=== PATIENT | male | born 1990 | race Hispanic/Latino ===

== ENCOUNTER 2025-01-14 12:21 | Inpatient (IN) | payer OTHER ==
[~2025-01-14] VITALS: Ht 200.7 cm; Wt 152.7 kg
--- NOTE | 2025-01-14 12:43 | ERN ---
ED Note History of Present Illness Stated Complaint: LEFT FOREARM ABSCESS Chief Complaint: Abscess Time Seen by MD: 12:25 Time Seen by Midlevel: 12:25 Dictation: 34-year-old male presents to the ED in custody due to failed outpatient antibiotic treatment for cellulitis of the left forearm. Patient has had open wound with surrounding cellulitis with a past 10 days and was evaluated by the physician Dr. Raymundo Contreras. Started on clindamycin and Bactrim five days ago and when went to re-evaluate him today sent him here to the ER due to failed and patient antibiotic treatment and worsening wound. Patient is a type 2 diabetic Allergies: Coded Allergies: lisinopril (Unverified Allergy, Unknown, 01/14/25) Past Medical History Past Medical History: Asthma, Diabetes-Type II, Hypertension Surgical History: None RN Note Reviewed/Agreed w/PFSH: Yes Review of System Dictation Constitutional: Negative for fever,chills, and weight loss Eyes: Negative for injury, pain,redness, and discharge ENT: Negative for injury,pain or swelling Cardiovascular: Negative for chest pain, palpitations, and edema Respiratory: Negative for shortness of breath, cough, and wheezing, Abdomen/GI: Negative for abdominal pain, nausea, vomiting, diarrhea, and constipation Back: Negative for injury and pain : Negative for injury, bleeding and discharge MS/Extremity: Negative for injury and deformity Skin: Negative for rash, and discoloration Neuro: Negative for headache, weakness, numbness, tingling, and seizure Psych: Negative for suicide ideation, homicidal ideation, and hallucinations Review of Systems: was completed Initial Vital Sign VS Vital Signs Date Time Temp Pulse Resp B/P (MAP) Pulse Ox O2 Delivery O2 Flow Rate FiO2 01/14/25 12:23 98.2 72 16 138/88 98 Room Air 0 01/14/25 12:39 21 Physical Exam Dictation General: awake, alert, NAD Head/Face: Normocephalic, atraumatic Eyes: PERRL, EOMI, vision at baseline ENT: oral cavity clear, TMs clear, no signs of infection Neck: Trachea midline, supple, no nuchal rigidity Cardiovascular: RRR, normal S1/S2, No MRGs, no JVD Respiratory: CTAB, no respiratory distress, No rales or wheezes Abdomen: Soft, non-tender, non-distended, normal bowel sounds, no guarding or rebound. Skin: Warm, dry, normal turgor, no rash. Large draining abscess with surrounding erythema of left forearm MS/Extremity: Pulses equal, no cyanosis, neurovascular intact, FROM Neuro: COAx4, GCS 15, strength 5/5, CN 2-12 intact, normal cerebellar exam, normal gait, Psych: Normal behavior, mood, and affect normal Results (Laboratory/Radiology) Laboratory/Radiology Laboratory Tests Test 01/14/25 12:58 White Blood Count 8.6 K/uL (4.8-10.8) Red Blood Count 5.28 MIL/uL (4.50-6.20) Hemoglobin 13.9 g/dL (14.0-18.0) L Hematocrit 41.5 % (42-54) L Mean Corpuscular Volume 78.6 fL (79-99) L Mean Corpuscular Hemoglobin 26.3 pg (27.0-33.0) L Mean Corpuscular Hemoglobin Concent 33.5 g/dL (32.0-36.0) Red Cell Distribution Width 12.9 % (11.0-15.5) Platelet Count 269 K/uL (130-400) Mean Platelet Volume 10.2 fL (7.5-10.5) Immature Granulocyte % (Auto) 0.4 % (0-1) Neutrophils (%) (Auto) 62.9 % (40.0-77.0) Lymphocytes (%) (Auto) 21.4 % (21.0-51.0) Monocytes (%) (Auto) 9.6 % (3.0-13.0) Eosinophils (%) (Auto) 5.0 % (0.0-8.0) Basophils (%) (Auto) 0.7 % (0.0-5.0) Neutrophils # (Auto) 5.4 K/uL (1.8-7.7) Lymphocytes # (Auto) 1.8 K/uL (1.0-4.8) Monocytes # (Auto) 0.8 K/uL (0.1-1.0) Eosinophils # (Auto) 0.43 K/uL (0.00-0.70) Basophils # (Auto) 0.06 K/uL (0.00-0.20) Absolute Immature Granulocyte (auto 0.03 K/uL (0-1) Nucleated Red Blood Cells 0.0 % (0.0-0.19) Sodium Level 135 mmol/L (136-145) L Potassium Level 4.0 mmol/L (3.5-5.1) Chloride Level 101 mmol/L (101-111) Carbon Dioxide Level 24 mmol/L (21-32) Blood Urea Nitrogen 15 mg/dL (7-18) Creatinine 1.0 mg/dL (0.5-1.3) Glomerular Filtration Rate Calc 101 mL/min (>90) Random Glucose 137 mg/dL (70-105) H Lactic Acid Level 1.4 mmol/L (0.8-2.5) Total Calcium 9.0 mg/dL (8.5-10.1) C-Reactive Protein, Quantitative 22.70 mg/L (0.5-3.0) H Labs Reviewed?: Yes ED Course ED Course Orders Procedure Category Date Status Time Cbc With Differential LAB 01/14/25 Complete 12:35 Basic Metabolic Panel LAB 01/14/25 Complete 12:35 Blood Cult GHAZALA 01/14/25 In Process 12:35 Crp Quantitative LAB 01/14/25 Complete 12:35 Lactic Acid LAB 01/14/25 Complete 12:35 Aerobic Culture GHAZALA 01/14/25 In Process 12:35 Anaerobic Culture GHAZALA 01/14/25 In Process 12:35 Clindamycin Ivpb PHA 01/14/25 Complete 600mg/50ml (Cleocin 12:35 Us Soft Tissue Upper US 01/14/25 Resulted Extremity 12:43 Edm Admit Bridge Order ADM 01/14/25 Transmitted 13:27 Admit Orders ADM 01/14/25 Transmitted 13:26 Cbc With Differential LAB 01/15/25 Verified 05:00 Basic Metabolic Panel LAB 01/15/25 Verified 05:00 Magnesium LAB 01/15/25 Verified 05:00 Hemoglobin A1c LAB 01/15/25 Verified 05:00 *Nursing CPOE 01/14/25 Transmitted Communication: 13:26 Consistent Carb DIET 01/14/25 Transmitted Lunch Acetaminophen 325 Tab PHA 01/14/25 In Process (Tylenol 325mg Tab 13:30 Ondansetron 4mg PHA 01/14/25 In Process Tablet (Zofran 4mg 13:30 Morphine 2mg Syg PHA 01/14/25 In Process (Morphine 2mg Syg) 13:30 Enoxaparin Sodium 30 PHA 01/15/25 In Process Mg/0.3 Ml (Lovenox) 09:00 Initiate OG 01/14/25 Transmitted Hyperglycemia Protoco 13:26 Insulin Lispro 100 PHA 01/14/25 In Process Unit/Ml 3ml (Humalog 16:30 Vancomycin Protocol PHA 01/14/25 In Process (Vancomycin Protocol 14:00 Cefepime Hcl 1 Gm PHA 01/14/25 In Process Vial (Maxipime 1 Gm Vi 14:00 Vancomycin 2gm/500 Ml PHA 01/14/25 In Process Bag (Vancomycin 2g 14:00 Vancomycin 1g/250ml PHA 01/14/25 In Process Kit (Vancomycin 1g/2 23:00 Vancomycin Trough LAB 01/15/25 Verified 14:00 General Surgery CONPHYSVC 01/14/25 Transmitted Consult 14:17 *Nursing CPOE 01/14/25 Transmitted Communication: 14:17 Current Medications Medications (Trade) Dose Ordered Sig/Naveen Route PRN Reason Start Time Stop Time Status Last Admin Dose Admin Clindamycin HCl/ Dextrose 50 ml @ 100 mls/hr Q8H STAT IV 01/14/25 12:35 01/14/25 13:04 DC 01/14/25 13:04 Vital Signs Date Time Temp Pulse Resp B/P (MAP) Pulse Ox O2 Delivery O2 Flow Rate FiO2 01/14/25 12:39 98.2 72 16 138/88 98 Room Air* 0 21 01/14/25 12:23 98.2 72 16 138/88 98 Room Air [address] Herzog who agrees for admission due to failed outpatient antibiotic treatment. Medical Decision Making MDM MDM: Differential diagnosis: Cellulitis, abscess, failed outpatient antibiotic treatment, sepsis Rationale: Tests considered and ordered secondary to shared decision making include: Previous outside records reviewed: Old ER visits. Medications-Per medication reconciliation Need for hospitalization: Patient does meet criteria for hospitalization. Need for emergency major/minor surgery: No Patient's prior external medical records from other ER visits were reviewed by me as indicated. Prior testing and results from previous visits were reviewed. Prior tests were taken into account with medical decision making and resource utilization, independent historian/historians were used to obtain complete medical history. I independently interpreted the test that were performed, results were reviewed by me and considered findings on radiology if ordered. 34-year-old male presents to the ED in custody due to failed outpatient antibiotic treatment for cellulitis of the left forearm. Patient has had open wound with surrounding cellulitis with a past 10 days and was evaluated by the physician Dr. Raymundo Contreras. Started on clindamycin and Bactrim five days ago and when went to re-evaluate him today sent him here to the ER due to failed and patient antibiotic treatment and worsening wound. Patient is a type 2 diabetic. DUE TO FAILED OUTPATIENT TREATMENT AND WORSENING SYMPTOMS PATIENT WILL BE ADMITTED TO THE HOSPITALIST FOR IV ANTIBIOTICS. BLOOD CULTURES AND WOUND CULTURES WERE OBTAINED. PATIENT IS STARTED ON CLINDAMYCIN 600 MG IV. Procedure Procedure Dictation: DX & DISP Disposition: Inpatient Decision to Admit Date: Jan 14, 2025 Decision to Admit Time: 13:00 Departure Impression: Primary Impression: Cellulitis Additional Impressions: Failure of outpatient treatment, Type 2 diabetes mellitus Condition: Stable Referrals: SELF,REFERRAL (PCP) I have reviewed the case, and I agree with, Diagnosis and Plan MIKEL MUSE Jan 14, 2025 12:43
[2025-01-14] MEDS: CLINDAMYCIN IVPB 600MG/50ML 50 ML IV STA (13:04)
[2025-01-14 13:10] LABS: IMMATURE GRANULOCYTE ABSOLUTE 0.03 K/uL (0-1); NUCLEATED RED BLOOD CELLS 0.0 % (0.0-0.19); PLATELET COUNT (AUTO) 269 K/uL (130-400); RED BLOOD CELL COUNT(AUTO) 5.28 MIL/uL (4.50-6.20); RED CELL DISTRIBUTION WIDTH 12.9 % (11.0-15.5); WHITE BLOOD COUNT (AUTO) 8.6 K/uL (4.8-10.8)
[2025-01-14 13:20] LABS: CREATININE 1.0 mg/dL (0.5-1.3); GLOMERULAR FILTR. RATE CALC 101.0 mL/min (>90); GLUCOSE,RANDOM 137.0 mg/dL (70-105); SODIUM SERUM 135.0 mmol/L (136-145); UREA NITROGEN, BLOOD 15.0 mg/dL (7-18)
--- NOTE | 2025-01-14 13:51 | HMCIMG ---
EXAM: US examination, left forearm CLINICAL HISTORY: HX OF LT FOREARM ABCESS TECHNIQUE: Real-time ultrasound examination performed with image documentation. COMPARISON: None provided. FINDINGS: A complex fluid collection measuring 12 x 6 x 13 mm in the subcutaneous plane of the left forearm is likely an abscess. Edema throughout the forearm. IMPRESSION: 1. 12 x 6 x 13 mm complex fluid collection in left forearm subcutaneous tissue, likely representing abscess with surrounding edema. /Savi
[2025-01-14] MEDS ORDERED: VANCOMYCIN PROTOCOL PER PHARMACY IV SCH (14:00)
--- NOTE | 2025-01-14 15:25 | NUR ---
DCP: RETURN TO [facility] Pt currently incarcerated at [facility] and will return to facility at [facility] per Officer Tammy Pierce Addendum: 01/14/25 at 1526 by JESÚS BRANTLEY Amended: Links added.
[2025-01-14] MEDS: VANCOMYCIN 2GM/500 ML BAG 500 ML IV ONE (15:50)
[2025-01-14 16:00] VITALS: BP 122/61; PULSE 75; RESP 17; TEMP 98
--- NOTE | 2025-01-14 17:23 | CONS ---
GENERAL SURGERY CONSULTATION NOTE Date/Time Patient Seen: [ January 14, 2025] Requesting Physician: [ Hospitalist] Reason for Consultation: [Left forearm abscess] History of Present Illness: [Patient who was incarcerated and has hypertension, diabetes sustained what he thinks is a spider bite to his left forearm about five days ago. Over the last five days this has progressively gotten worse he has become more erythematous and more tender. Patient has started notice a central necrosis with some purulent material. Due to the condition that he was experiencing patient was brought into the hospital. Patient is currently in mild discomfort. He is able to move his extremities without any problems but there is discomfort to the area where the abscess is present. Patient denies ever having a condition like this before. Patient denies any fever or chills. ] Past Medical History: [Hypertension, diabetes, asthma ] Past Surgical History: [ Patient denies any surgical intervention] Family History: [Noncontributory ] Social History: [ Patient denies any illicit drug use] Habits: [Never] smoker. [Denies] alcohol consumption. [Denies] illicit drug use Current Medications Medications (Trade) Dose Ordered Sig/Naveen Route Start Time Stop Time Status Last Admin Dose Admin Cefepime HCl (MAXipime 1 GM vial) 1 gm Q8H IVPB 01/14/25 14:00 01/24/25 13:59 01/14/25 14:00 1 GM Clindamycin HCl/ Dextrose 50 ml @ 100 mls/hr Q8H STAT IV 01/14/25 12:35 01/14/25 13:04 DC 01/14/25 13:04 100 MLS/HR Enoxaparin Sodium (Lovenox) 30 mg DAILY SQ 01/15/25 09:00 02/14/25 08:59 Insulin Human Lispro (HumaLOG LISpro 100 UNIT/ML 3ML) INSULIN SLIDING SCAL... ACHS SQ 01/14/25 16:30 02/13/25 16:29 Vancomycin HCl 250 ml @ 125 mls/hr Q8H IV 01/14/25 23:00 01/24/25 22:59 Vancomycin HCl (Vancomycin Protocol) 1 each AD IV 01/14/25 14:00 01/28/25 13:59 Review of Systems: Fourteen point review of systems negative except what was mentioned in history of present illness Physical Examination: PHYSICAL EXAM EYES: Sclera white HENT: Oral nasal mucosa pink and moist NECK: Supple, . LUNGS: Unlabored CARDIOVASCULAR: Regular rate and rhythm ABDOMEN: Soft, nontender, nondistended CENTRAL NERVOUS SYSTEM: Awake, alert, oriented x3 SKIN: Left forearm abscess with central area of necrosis and purulent material LYMPHATICS: No peripheral lymphadenopathy MUSCULOSKELETAL: Motor and sensory function grossly intact Vital Signs (last 8hr) Date Time Temp Pulse Resp B/P (MAP) Pulse Ox O2 Delivery O2 Flow Rate FiO2 01/14/25 12:39 98.2 72 16 138/88 98 Room Air* 0 21 01/14/25 12:23 98.2 72 16 138/88 98 Room Air 0 Laboratory: [ ] Hematology Labs: Test 01/14/25 12:58 Range/Units White Blood Count 8.6 4.8-10.8 K/uL Red Blood Count 5.28 4.50-6.20 MIL/uL Hemoglobin 13.9 L 14.0-18.0 g/dL Hematocrit 41.5 L 42-54 % Mean Corpuscular Volume 78.6 L 79-99 fL Mean Corpuscular Hemoglobin 26.3 L 27.0-33.0 pg Mean Corpuscular Hemoglobin Concent 33.5 32.0-36.0 g/dL Red Cell Distribution Width 12.9 11.0-15.5 % Platelet Count 269 130-400 K/uL Mean Platelet Volume 10.2 7.5-10.5 fL Immature Granulocyte % (Auto) 0.4 0-1 % Neutrophils (%) (Auto) 62.9 40.0-77.0 % Lymphocytes (%) (Auto) 21.4 21.0-51.0 % Monocytes (%) (Auto) 9.6 3.0-13.0 % Eosinophils (%) (Auto) 5.0 0.0-8.0 % Basophils (%) (Auto) 0.7 0.0-5.0 % Neutrophils # (Auto) 5.4 1.8-7.7 K/uL Lymphocytes # (Auto) 1.8 1.0-4.8 K/uL Monocytes # (Auto) 0.8 0.1-1.0 K/uL Eosinophils # (Auto) 0.43 0.00-0.70 K/uL Basophils # (Auto) 0.06 0.00-0.20 K/uL Absolute Immature Granulocyte (auto 0.03 0-1 K/uL Nucleated Red Blood Cells 0.0 0.0-0.19 % Chemistry Labs: Test 01/14/25 17:11 01/14/25 12:58 Range/Units Whole Blood Glucose 160 H 70-110 MG/DL Sodium Level 135 L 136-145 mmol/L Potassium Level 4.0 3.5-5.1 mmol/L Chloride Level 101 101-111 mmol/L Carbon Dioxide Level 24 21-32 mmol/L Blood Urea Nitrogen 15 7-18 mg/dL Creatinine 1.0 0.5-1.3 mg/dL Glomerular Filtration Rate Calc 101 >90 mL/min Random Glucose 137 H 70-105 mg/dL Lactic Acid Level 1.4 0.8-2.5 mmol/L Total Calcium 9.0 8.5-10.1 mg/dL C-Reactive Protein, Quantitative 22.70 H 0.5-3.0 mg/L Diagnostics / Radiology: [Copy/Paste Echos/Imaging Report here] Assessment: [ Left forearm abscess] Plan: [ Plan debridement of left forearm abscess with excision of all necrotic tissue. Risks associated with the procedure not limited to infection, bleeding, injury to surrounding structures has been explained to patient and he indicates he understands.] LONNIE SIMON MD Jan 14, 2025 17:23
[2025-01-14 18:05] VITALS: O2SAT 98
[2025-01-14 21:30] VITALS: BP 144/80; PULSE 71; RESP 20; TEMP 97.8
[2025-01-14] MEDS ORDERED: HYDR10 PO (21:37)
[2025-01-14] MEDS ORDERED: CICL6.1H2 IH (22:07)
[2025-01-14] MEDS ORDERED: ALBU18HF7 IH (22:07)
[2025-01-14] MEDS ORDERED: ACET-2079 PO (22:07)
[2025-01-14] MEDS ORDERED: CETI10TA57 PO (22:07)
[2025-01-14] MEDS ORDERED: ATOR10 PO (22:07)
[2025-01-14] MEDS ORDERED: NEOM1OIN19 TP (22:07)
[2025-01-14] MEDS ORDERED: SULF1TAB89 PO (22:07)
[2025-01-14] MEDS ORDERED: SERT-440 PO (22:07)
[2025-01-14] MEDS ORDERED: IBUP-2077 PO (22:07)
[2025-01-14] MEDS ORDERED: GUAN2TAB PO (22:07)
[2025-01-14] MEDS ORDERED: METO-391 PO (22:07)
[2025-01-14] MEDS ORDERED: CLIN-116 PO (22:07)
[2025-01-14] MEDS: VANCOMYCIN 1G/250ML KIT 250 ML IV SCH (22:16)
[2025-01-14 23:35] VITALS: BP 126/73; PULSE 56; RESP 20; TEMP 97.8
--- NOTE | 2025-01-15 02:59 | HP ---
DATE OF SERVICE: 01/14/2025. HISTORY AND PHYSICAL PRESENTING COMPLAINT: Left arm pain, swelling, and redness. HISTORY OF PRESENT ILLNESS: A 34-year-old male with history of obesity, hypertension, and diabetes mellitus, was brought in from alf with left arm pain, swelling, and redness. No history of trauma or fall. The patient claimed swelling started about 5 days ago. The patient was given Bactrim and clindamycin at the alf. The patient was sent to the Emergency Room for further evaluation due to no improvement. Sonogram of the left arm has been done, which came back positive for abscess. No fever or chills. PAST MEDICAL HISTORY: * Diabetes mellitus. * Hypertension. * Asthma. * Morbid obesity. PAST SURGICAL HISTORY: None. ALLERGIES: No known drug allergies. HOME MEDICATIONS: Include: * Insulin. * Clindamycin. * Bactrim. SOCIAL HISTORY: The patient is presently incarcerated. Denies alcohol, tobacco, or illicit drug use. FAMILY HISTORY: Positive for diabetes mellitus. REVIEW OF SYSTEMS: Greater than 10 systems were reviewed. Negative except as documented above. PHYSICAL EXAMINATION: GENERAL: A young male, awake. VITAL SIGNS: Temperature 98.3, pulse 72, respirations 16, BP 138/88. EYES: No icterus. Pupils equal and reactive. HENT: No oral thrush seen. Moist oral mucosa. NECK: Supple. No JVD or thyromegaly. LUNGS: Good air entry. No rales. No rhonchi. CARDIOVASCULAR SYSTEM: S1, S2, regular. No murmur heard. ABDOMEN: Morbidly obese, soft, nontender. Bowel sound is present. CENTRAL NERVOUS SYSTEM: Awake, alert, oriented x 3. No focal deficits. SKIN: No rashes, no itchiness. LYMPHATIC: No peripheral lymphadenopathy. BACK: No deformity. No pressure ulcer. MUSCULOSKELETAL: No joint swelling, erythema, or tenderness. EXTREMITIES: Area of abscess involving the left forearm. LABORATORIES: Sodium 135, potassium 4.0, BUN 15, creatinine 1.0. WBC 8.6, hemoglobin 13.9, platelets 269. RADIOLOGY: Sonogram of the forearm results reviewed. ASSESSMENT: A 34-year-old male with obesity and hypertension, presenting with left forearm pain, swelling, and redness. Current problems include: * Left forearm abscess. * Left forearm cellulitis. * Obesity. * Hypertension. * Diabetes mellitus. * History of asthma. PLAN: * Admit the patient to medical floor. * Start the patient on vancomycin. * Start the patient on cefepime. * Morphine as needed for pain. * Tylenol as needed for pain or fever. * Zofran as needed for nausea and vomiting. * Surgical evaluation for debridement, incision and drainage. * ADA diet. * Lispro sliding scale. * Home medications will be reconciled. TID: [id number] RECEIPT: [id number] MTDD
[2025-01-15 03:49] VITALS: BP 115/69; PULSE 55; RESP 20; TEMP 97.5
[2025-01-15 05:35] LABS: IMMATURE GRANULOCYTE ABSOLUTE 0.03 K/uL (0-1); NUCLEATED RED BLOOD CELLS 0.0 % (0.0-0.19); PLATELET COUNT (AUTO) 274 K/uL (130-400); RED BLOOD CELL COUNT(AUTO) 4.93 MIL/uL (4.50-6.20); RED CELL DISTRIBUTION WIDTH 13.1 % (11.0-15.5); WHITE BLOOD COUNT (AUTO) 7.2 K/uL (4.8-10.8)
[2025-01-15 05:45] LABS: CREATININE 1.0 mg/dL (0.5-1.3); GLOMERULAR FILTR. RATE CALC 101.0 mL/min (>90); GLUCOSE,RANDOM 109.0 mg/dL (70-105); SODIUM SERUM 137.0 mmol/L (136-145); UREA NITROGEN, BLOOD 14.0 mg/dL (7-18)
[2025-01-15 08:00] VITALS: BP 128/81; PULSE 62; RESP 16; TEMP 97.8; O2SAT 99
[2025-01-15] MEDS: ENOXAPARIN SODIUM 30 MG/0.3 ML SQ SCH (08:11)
[2025-01-15 11:46] VITALS: BP 150/79; PULSE 56; RESP 16; TEMP 97.6
--- NOTE | 2025-01-15 16:51 | PN ---
INFECTIOUS DISEASE PROGRESS NOTE Date of Service: Jan 15, 2025 SUBJECTIVE: This 34 year old male patient is being seen today at bedside. He is awake, alert and oriented x3. No fever or chills. No nausea or vomiting. Patient continue with vancomycin and cefepime for left forearm abscess. Denies pain. He has been evaluated by general surgery and the plan is to take him for I&D. We will follow up on cultures once that is done. No over night events reported by nurse at this visit. PHYSICAL EXAM EYES: Anicteric. Pupils equal and reactive. HENT: No oral thrush seen, moist Oral mucosa NECK: Supple, no JVD or thyromegaly. LUNGS: Good air entry. No rales, no rhonchi. CARDIOVASCULAR: S1, S2 regular. No murmur heard. ABDOMEN: Soft, non tender, bowel sounds present, no organomegaly CENTRAL NERVOUS SYSTEM: Awake, alert, oriented x 3. No focal deficits. SKIN: No rashes, no swelling. LYMPHATICS: No peripheral lymphadenopathy MUSCULOSKELETAL: No joint swelling, erythema or tenderness. EXTREMITIES: dressing to left forearm BACK: No deformity, no pressure ulcer. GENITOURINARY: No dysuria or hematuria Vital Sign (Last 12 Hours) 01/15/25 01/15/25 08:00 11:46 Temp 97.9 97.5 Pulse 62 56 Resp 16 16 B/P (MAP) 128/81 150/79 Pulse Ox 95 O2 Delivery Room Air Room Air FiO2 21 21 LABS: Laboratory: Test 01/15/25 14:35 01/15/25 10:57 01/15/25 05:17 01/14/25 12:58 Range/Units Vancomycin Level Trough 12.0 10.0-20.0 UG/ML Whole Blood Glucose 93 70-110 MG/DL White Blood Count 7.2 4.8-10.8 K/uL Red Blood Count 4.93 4.50-6.20 MIL/uL Hemoglobin 13.0 L 14.0-18.0 g/dL Hematocrit 39.0 L 42-54 % Mean Corpuscular Volume 79.1 79-99 fL Mean Corpuscular Hemoglobin 26.4 L 27.0-33.0 pg Mean Corpuscular Hemoglobin Concent 33.3 32.0-36.0 g/dL Red Cell Distribution Width 13.1 11.0-15.5 % Platelet Count 274 130-400 K/uL Mean Platelet Volume 10.1 7.5-10.5 fL Immature Granulocyte % (Auto) 0.4 0-1 % Neutrophils (%) (Auto) 49.5 40.0-77.0 % Lymphocytes (%) (Auto) 30.5 21.0-51.0 % Monocytes (%) (Auto) 13.4 H 3.0-13.0 % Eosinophils (%) (Auto) 5.4 0.0-8.0 % Basophils (%) (Auto) 0.8 0.0-5.0 % Neutrophils # (Auto) 3.6 1.8-7.7 K/uL Lymphocytes # (Auto) 2.2 1.0-4.8 K/uL Monocytes # (Auto) 1.0 0.1-1.0 K/uL Eosinophils # (Auto) 0.39 0.00-0.70 K/uL Basophils # (Auto) 0.06 0.00-0.20 K/uL Absolute Immature Granulocyte (auto 0.03 0-1 K/uL Nucleated Red Blood Cells 0.0 0.0-0.19 % Sodium Level 137 136-145 mmol/L Potassium Level 4.5 3.5-5.1 mmol/L Chloride Level 104 101-111 mmol/L Carbon Dioxide Level 26 21-32 mmol/L Blood Urea Nitrogen 14 7-18 mg/dL Creatinine 1.0 0.5-1.3 mg/dL Glomerular Filtration Rate Calc 101 >90 mL/min Random Glucose 109 H 70-105 mg/dL Total Calcium 8.9 8.5-10.1 mg/dL Magnesium Level 1.90 1.80-2.40 mg/dL Hemoglobin A1c 7.5 H 4.0-6.0 % Estimated Average Glucose (eAG) 169 H 70-126 mg/dL Lactic Acid Level 1.4 0.8-2.5 mmol/L C-Reactive Protein, Quantitative 22.70 H 0.5-3.0 mg/L DIAGNOSTICS / RADIOLOGY: REASON: abscess left forearm ORDERING PHYSICIAN: MIKEL MUSE PROCEDURE: SOFT UP EX - US SOFT TISSUE UPPER EXTREMITY EXAM: US examination, left forearm CLINICAL HISTORY: HX OF LT FOREARM ABCESS TECHNIQUE: Real-time ultrasound examination performed with image documentation. COMPARISON: None provided. FINDINGS: A complex fluid collection measuring 12 x 6 x 13 mm in the subcutaneous plane of the left forearm is likely an abscess. Edema throughout the forearm. IMPRESSION: 1. 12 x 6 x 13 mm complex fluid collection in left forearm subcutaneous tissue, likely representing abscess with surrounding edema. /[place] ASSESSMENT: * Left forearm abscess. * Left forearm cellulitis. * Obesity. * Hypertension. * Diabetes mellitus. * History of asthma. PLAN: * Pending I&D to left forearm * Continue vancomycin. * Continue cefepime. * Morphine as needed for pain. * Tylenol as needed for pain or fever. * Zofran as needed for nausea and vomiting. * Surgical evaluation for debridement, incision and drainage. * ADA diet. * Lispro sliding scale. This case has been discussed with my supervising physician Dr. Kenyon. The case has been discussed and agreed upon. CARIDAD CHU [facility] Jan 15, 2025 16:50
[2025-01-15 20:00] VITALS: BP 141/75; PULSE 60; RESP 20; TEMP 98.1; O2SAT 96
--- NOTE | 2025-01-15 23:45 | NUR ---
NOTE Patient informed of nothing to eat or drink past midnight,verbalized understanding.
[2025-01-16] VITALS (24 sets, daily range): BP systolic 103–154; BP diastolic 62–94; PULSE 64–98; RESP 14–20; TEMP 97.4–98.1; O2SAT 95–98
--- NOTE | 2025-01-16 06:02 | NUR ---
NOTE Patient transferred to surgery at this time.
[2025-01-16] MEDS ORDERED: LIDOCAINE PF 100MG/5ML (2%) SYRINGE 5ML ONE (06:24)
[2025-01-16] MEDS ORDERED: MIDAZOLAM HCL 1 MG/ML 2ML VIAL ONE (06:24)
[2025-01-16] MEDS ORDERED: SUCCINYLCHOLINE CHLORIDE 20 MG/ML 10 ML VIAL ONE (06:30)
--- NOTE | 2025-01-16 06:51 | OP ---
Operative Note: DATE OF PROCEDURE: 01/16/25 SURGEON: LONNIE SIMON MD MEATCUTTER: [Servando Rios CFA] ANESTHESIA: [General endotracheal anesthesia] ANESTHESIOLOGIST/DIE EQUIPMENT OPERATOR: [[facility] anesthesia team] PREOPERATIVE DIAGNOSIS: [Left forearm abscess with wound] POSTOPERATIVE DIAGNOSIS: [Same] SYNOPSIS: [Left forearm abscess with wound Excisional debridement of left forearm necrotic tissue. Excision down to muscle. Total size of wound excised was approximately 4.2 cm. All sponges and instruments accounted for at the end the case Patient tolerated the procedure well, there no complications] PROCEDURE: [Excisional debridement of left forearm necrotic wound] ESTIMATED BLOOD LOSS: [Less than 10 cc] INDICATIONS: [Left forearm necrotic wound] DESCRIPTION OF PROCEDURE: [On day of surgery patient presented to the hospital. Patient was brought back to operating room. Positioned in the supine position. Preoperative antibiotics were given. Bilateral SCDs were placed. Patient was intubated. Patient then was prepped and draped the usual fashion. Skin incision was made around the necrotic tissue. Dissection down to and around the entire wound to excise all necrotic tissue was done electrocautery. The disse ction was actually carried down to the muscle. The necrotic wound was peeled off of the fascia of the muscle. Careful attention was taken so as not to injure any blood vessels and nerves. All the necrotic tissue was removed and sent off to pathology as well as for Gram stain, aerobic, anaerobic culture and sensitivity. And the wound was copiously irrigated. All irrigation was removed. Appropriate hemostasis was observed. Then the wound was packed in a damp to dry fashion with Kerlix soaked in Betadine. Appropriate dressings were placed. Patient has woken up, transferred to a stretcher, taken to recovery room to recovery. All sponges and instruments were accounted for at the end the case. Patient tolerated the procedure well, there no complications.] LONNIE SIMON MD Jan 16, 2025 06:51
--- NOTE | 2025-01-16 13:58 | PN ---
INFECTIOUS DISEASE PROGRESS NOTE Date of Service: Jan 16, 2025 SUBJECTIVE: This 34 year old male patient is being seen today at bedside. No fever or chills. No nausea or vomiting. Patient denies chest pain or shortness of breath. Patient is status post I&D to left forearm. He is laying in bed in no distress. He continues with antibiotics. We will follow wound cultures. No acute events over night reported by nurse. PHYSICAL EXAM EYES: Anicteric. Pupils equal and reactive. HENT: No oral thrush seen, moist Oral mucosa NECK: Supple, no JVD or thyromegaly. LUNGS: Good air entry. No rales, no rhonchi. CARDIOVASCULAR: S1, S2 regular. No murmur heard. ABDOMEN: Soft, non tender, bowel sounds present, no organomegaly CENTRAL NERVOUS SYSTEM: Awake, alert, oriented x 3. No focal deficits. SKIN: No rashes, no swelling. LYMPHATICS: No peripheral lymphadenopathy MUSCULOSKELETAL: No joint swelling, erythema or tenderness. EXTREMITIES: dressing to left forearm BACK: No deformity, no pressure ulcer. GENITOURINARY: No dysuria or hematuria Vital Sign (Last 12 Hours) 01/16/25 01/16/25 01/16/25 01/16/25 04:00 06:49 06:54 06:59 Temp 98.1 97.5 Pulse 76 98 97 96 Resp 20 16 15 17 B/P (MAP) 139/77 141/67 114/62 126/70 Pulse Ox 99 100 100 100 O2 Delivery Room Air Nonrebreathing Mask Nonrebreathing Mask Nonrebreathing Mask O2 Flow Rate 10.0 10.0 10.0 01/16/25 01/16/25 01/16/25 01/16/25 07:04 07:09 07:14 07:19 Pulse 95 96 90 92 Resp 18 15 14 15 B/P (MAP) 116/66 118/71 123/74 119/70 Pulse Ox 100 96 94 93 O2 Delivery Nonrebreathing Mask Room Air Room Air Room Air O2 Flow Rate 10.0 01/16/25 01/16/25 01/16/25 01/16/25 07:24 07:29 07:34 07:37 Temp 97.5 97.9 Pulse 89 87 90 65 Resp 15 16 15 17 B/P (MAP) 111/65 123/64 117/66 117/69 Pulse Ox 93 95 95 91 O2 Delivery Room Air Room Air Room Air Room Air 01/16/25 01/16/25 01/16/25 01/16/25 07:52 08:00 08:07 08:22 Pulse 82 66 94 Resp 18 18 19 B/P (MAP) 121/63 111/71 103/64 Pulse Ox 94 94 95 O2 Delivery Room Air Room Air Room Air 01/16/25 01/16/25 01/16/25 01/16/25 08:37 08:52 09:10 09:22 Pulse 89 84 83 Resp 19 18 18 B/P (MAP) 127/79 117/73 118/70 Pulse Ox 97 97 95 95 O2 Delivery Room Air Room Air Room Air* Room Air O2 Flow Rate 0 FiO2 21 01/16/25 10:22 Pulse 82 Resp 18 B/P (MAP) 112/74 Pulse Ox 97 O2 Delivery Room Air Intake & Output (last 24hrs) 01/15/25 01/15/25 01/16/25 15:00 23:00 07:00 Intake Total 300 ml Balance 300 ml LABS: Laboratory: Test 01/16/25 11:00 01/15/25 14:35 01/15/25 05:17 Range/Units Whole Blood Glucose 137 H 70-110 MG/DL Vancomycin Level Trough 12.0 10.0-20.0 UG/ML White Blood Count 7.2 4.8-10.8 K/uL Red Blood Count 4.93 4.50-6.20 MIL/uL Hemoglobin 13.0 L 14.0-18.0 g/dL Hematocrit 39.0 L 42-54 % Mean Corpuscular Volume 79.1 79-99 fL Mean Corpuscular Hemoglobin 26.4 L 27.0-33.0 pg Mean Corpuscular Hemoglobin Concent 33.3 32.0-36.0 g/dL Red Cell Distribution Width 13.1 11.0-15.5 % Platelet Count 274 130-400 K/uL Mean Platelet Volume 10.1 7.5-10.5 fL Immature Granulocyte % (Auto) 0.4 0-1 % Neutrophils (%) (Auto) 49.5 40.0-77.0 % Lymphocytes (%) (Auto) 30.5 21.0-51.0 % Monocytes (%) (Auto) 13.4 H 3.0-13.0 % Eosinophils (%) (Auto) 5.4 0.0-8.0 % Basophils (%) (Auto) 0.8 0.0-5.0 % Neutrophils # (Auto) 3.6 1.8-7.7 K/uL Lymphocytes # (Auto) 2.2 1.0-4.8 K/uL Monocytes # (Auto) 1.0 0.1-1.0 K/uL Eosinophils # (Auto) 0.39 0.00-0.70 K/uL Basophils # (Auto) 0.06 0.00-0.20 K/uL Absolute Immature Granulocyte (auto 0.03 0-1 K/uL Nucleated Red Blood Cells 0.0 0.0-0.19 % Sodium Level 137 136-145 mmol/L Potassium Level 4.5 3.5-5.1 mmol/L Chloride Level 104 101-111 mmol/L Carbon Dioxide Level 26 21-32 mmol/L Blood Urea Nitrogen 14 7-18 mg/dL Creatinine 1.0 0.5-1.3 mg/dL Glomerular Filtration Rate Calc 101 >90 mL/min Random Glucose 109 H 70-105 mg/dL Total Calcium 8.9 8.5-10.1 mg/dL Magnesium Level 1.90 1.80-2.40 mg/dL DIAGNOSTICS / RADIOLOGY: REASON: abscess left forearm ORDERING PHYSICIAN: MIKEL MUSE PROCEDURE: SOFT UP EX - US SOFT TISSUE UPPER EXTREMITY EXAM: US examination, left forearm CLINICAL HISTORY: HX OF LT FOREARM ABCESS TECHNIQUE: Real-time ultrasound examination performed with image documentation. COMPARISON: None provided. FINDINGS: A complex fluid collection measuring 12 x 6 x 13 mm in the subcutaneous plane of the left forearm is likely an abscess. Edema throughout the forearm. IMPRESSION: 1. 12 x 6 x 13 mm complex fluid collection in left forearm subcutaneous tissue, likely representing abscess with surrounding edema. /Eastern ASSESSMENT: * Left forearm abscess. * Left forearm cellulitis. * Obesity. * Hypertension. * Diabetes mellitus. * History of asthma. PLAN: * status post I&D to left forearm 01/16/2025 * Continue vancomycin. * Continue cefepime. * Morphine as needed for pain. * Tylenol as needed for pain or fever. * Zofran as needed for nausea and vomiting. * Surgical evaluation for debridement, incision and drainage. * ADA diet. * Lispro sliding scale. This case has been discussed with my supervising physician Dr. Kenyon. The case has been discussed and agreed upon. CARIDAD CHU [facility] Jan 16, 2025 13:58
[2025-01-17] VITALS (10 sets, daily range): BP systolic 123–141; BP diastolic 54–88; PULSE 69–87; RESP 17–21; TEMP 97.6–98.2; O2SAT 98–99
[2025-01-17 05:39] LABS: NUCLEATED RED BLOOD CELLS 0.0 % (0.0-0.19); PLATELET COUNT (AUTO) 248.0 K/uL (130-400); RED BLOOD CELL COUNT(AUTO) 5.78 MIL/uL (4.50-6.20); RED CELL DISTRIBUTION WIDTH 12.9 % (11.0-15.5); WHITE BLOOD COUNT (AUTO) 6.5 K/uL (4.8-10.8)
[2025-01-17 05:47] LABS: CREATININE 0.9 mg/dL (0.5-1.3); GLOMERULAR FILTR. RATE CALC 114.0 mL/min (>90); GLUCOSE,RANDOM 111.0 mg/dL (70-105); SODIUM SERUM 138.0 mmol/L (136-145); UREA NITROGEN, BLOOD 10.0 mg/dL (7-18)
--- NOTE | 2025-01-17 06:00 | NUR ---
WOUND CARE Wound care done to left forearm wound, damp to dry dressing as per orders. Tolerated well. Denies pain to left arm.
--- NOTE | 2025-01-17 15:33 | PN ---
INFECTIOUS DISEASE PROGRESS NOTE Date of Service: Jan 17, 2025 SUBJECTIVE: This 34 year old male patient is being seen today at bedside. He is awake, alert and oriented x3. patient denies chest pain or palpitations. He denies dysuria or hematuria. Patient continues with the antibiotics. Wound care to left forearm. In no distress at this time we continue to follow patient closely. PHYSICAL EXAM EYES: Anicteric. Pupils equal and reactive. HENT: No oral thrush seen, moist Oral mucosa NECK: Supple, no JVD or thyromegaly. LUNGS: Good air entry. No rales, no rhonchi. CARDIOVASCULAR: S1, S2 regular. No murmur heard. ABDOMEN: Soft, non tender, bowel sounds present, no organomegaly CENTRAL NERVOUS SYSTEM: Awake, alert, oriented x 3. No focal deficits. SKIN: No rashes, no swelling. LYMPHATICS: No peripheral lymphadenopathy MUSCULOSKELETAL: No joint swelling, erythema or tenderness. EXTREMITIES: dressing to left forearm BACK: No deformity, no pressure ulcer. GENITOURINARY: No dysuria or hematuria Vital Sign (Last 12 Hours) 01/17/25 01/17/25 01/17/25 01/17/25 04:43 08:00 08:40 12:00 Temp 97.9 97.9 98.2 Pulse 69 87 83 Resp 17 20 21 B/P (MAP) 136/82 134/88 134/83 Pulse Ox 100 98 98 96 O2 Delivery Room Air Room Air Room Air* Room Air O2 Flow Rate 0 FiO2 21 LABS: Laboratory: Test 01/17/25 14:45 01/17/25 11:27 01/17/25 05:30 Range/Units Vancomycin Level Trough 14.2 10.0-20.0 UG/ML Whole Blood Glucose 120 H 70-110 MG/DL White Blood Count 6.5 4.8-10.8 K/uL Red Blood Count 5.78 4.50-6.20 MIL/uL Hemoglobin 15.1 14.0-18.0 g/dL Hematocrit 45.2 42-54 % Mean Corpuscular Volume 78.2 L 79-99 fL Mean Corpuscular Hemoglobin 26.1 L 27.0-33.0 pg Mean Corpuscular Hemoglobin Concent 33.4 32.0-36.0 g/dL Red Cell Distribution Width 12.9 11.0-15.5 % Platelet Count 248 130-400 K/uL Mean Platelet Volume 9.5 7.5-10.5 fL Nucleated Red Blood Cells 0.0 0.0-0.19 % Sodium Level 138 136-145 mmol/L Potassium Level 4.1 3.5-5.1 mmol/L Chloride Level 103 101-111 mmol/L Carbon Dioxide Level 26 21-32 mmol/L Blood Urea Nitrogen 10 7-18 mg/dL Creatinine 0.9 0.5-1.3 mg/dL Glomerular Filtration Rate Calc 114 >90 mL/min Random Glucose 111 H 70-105 mg/dL Total Calcium 9.0 8.5-10.1 mg/dL Magnesium Level 1.80 1.80-2.40 mg/dL DIAGNOSTICS / RADIOLOGY: REASON: abscess left forearm ORDERING PHYSICIAN: MIKEL MUSE PROCEDURE: SOFT UP EX - US SOFT TISSUE UPPER EXTREMITY EXAM: US examination, left forearm CLINICAL HISTORY: HX OF LT FOREARM ABCESS TECHNIQUE: Real-time ultrasound examination performed with image documentation. COMPARISON: None provided. FINDINGS: A complex fluid collection measuring 12 x 6 x 13 mm in the subcutaneous plane of the left forearm is likely an abscess. Edema throughout the forearm. IMPRESSION: 1. 12 x 6 x 13 mm complex fluid collection in left forearm subcutaneous tissue, likely representing abscess with surrounding edema. /Eastern ASSESSMENT: * Left forearm abscess. * Left forearm cellulitis. * Obesity. * Hypertension. * Diabetes mellitus. * History of asthma. PLAN: * status post I&D to left forearm 01/16/2025 * Continue vancomycin. * Continue cefepime. * Morphine as needed for pain. * Tylenol as needed for pain or fever. * Zofran as needed for nausea and vomiting. * Surgical evaluation for debridement, incision and drainage. * ADA diet. * Lispro sliding scale. This case has been discussed with my supervising physician Dr. Kenyon. The case has been discussed and agreed upon. CARIDAD CHU [facility] Jan 17, 2025 15:33
--- NOTE | 2025-01-17 20:05 | NUR ---
ELEVATED BP MADE DR TYLER AWARE OF ELEVATED BP NO BP MEDS AVAILABLE HAVE NOT BEEN RESUMED. PER DR TYLER RESUME BP MEDS.
[2025-01-18 03:32] VITALS: BP 130/74; PULSE 81; RESP 20; TEMP 98.3
[2025-01-18 08:00] VITALS: BP 135/90; PULSE 74; RESP 20; TEMP 97.8
[2025-01-18 08:07] VITALS: O2SAT 100
[2025-01-18 12:00] VITALS: BP 142/87; PULSE 67; RESP 19; TEMP 97.7
--- NOTE | 2025-01-18 15:01 | NUR ---
DISCHARGE PERIPHERAL IV REMOVED DISCHARGE EDUCATION AND INSTRUCTIONS PROVIDED TO PATIENT PATIENT AWARE TO CONTINUE MEDICATIONS PRESCRIBED PATIENT AWARE TO TURN IN WRITTEN PRESCRIPTION TO [facility] PATIENT EDUCATED ON WOUND CARE ALL QUESTIONS ANSWERED
--- NOTE | 2025-01-18 18:34 | DS ---
DATE OF DISCHARGE: 01/18/2025. DISCHARGE SUMMARY PRESENTING COMPLAINT: Left forearm pain, swelling, and redness. HOSPITAL COURSE: The patient is a 34-year-old male with morbid obesity, hypertension, and diabetes mellitus, who presented to the hospital with left forearm pain, swelling, and redness. The patient was brought to the hospital from long term. The patient had imaging done, which showed abscess. The patient was seen by General Surgery and underwent incision and drainage. Culture came back positive for MRSA. The patient is doing well. Antibiotic has been adjusted. FINAL DISCHARGE DIAGNOSES: * Left forearm abscess. * Left forearm cellulitis. * . * Hypertension. * Diabetes mellitus. * Morbid obesity. PLAN: * Continue wound care. * Continue pain management. * Continue antidiabetic. * Continue antihypertensive. * The patient will be given doxycycline upon discharge. TID: [id number] RECEIPT: [id number] [email or web address]
== END 2025-01-18 15:00 | DRG 581 ==
LOC: EEVIPCON 12:21 → EDH 12:21 → EDHIP 13:26 → 3BH 21:11
PROVIDERS: ADMIT Internal Medicine Infectious Disease; ATTEND Internal Medicine Infectious Disease
PROC: 0KBB0ZZ Excision of Left Lower Arm and Wrist Muscle, Open Approach (ICD-10-PCS; principal; 2025-01-16)
DX: L03.114 Cellulitis of left upper limb (principal); L02.414 Cutaneous abscess of left upper limb; B95.62 Methicillin resistant Staphylococcus aureus infection as the cause of diseases classified elsewhere; E11.9 Type 2 diabetes mellitus without complications; Z83.3 Family history of diabetes mellitus; J45.909 Unspecified asthma, uncomplicated; I10 Essential (primary) hypertension; E66.01 Morbid (severe) obesity due to excess calories; Z88.8 Allergy status to other drugs, medicaments and biological substances; Z68.37 Body mass index [BMI] 37.0-37.9, adult
CPT/HCPCS: 36415; 76882; 80048; 80202; 82948; 83036; 83605; 83735; 85025; 85027; 86140; 87040; 87070; 87076; 87086; 87186; 99285; A6407; G0378; J0330; J0692; J1650; J2003; J2250; J2704; J3010; J3373; J3490; A4216; A4221; A4222; A4223; A4649; A4930; J3370